=== PATIENT | female | born 1955 | race Caucasian/White ===

== ENCOUNTER → 2023-10-04 14:23 | Outpatient (REF) | payer MEDICARE, SELFPAY | LOC: WDC 14:23 | PROVIDERS: ATTENDING PHYSICIAN Family Medicine | DX: Z12.31 Encounter for screening mammogram for malignant neoplasm of breast (principal); M81.0 Age-related osteoporosis without current pathological fracture; Z78.0 Asymptomatic menopausal state; E04.1 Nontoxic single thyroid nodule | CPT/HCPCS: 76536; 77063; 77067; 77080 ==

== ENCOUNTER → 2023-11-02 07:46 | Outpatient (REF) | payer MEDICARE, SELFPAY | LOC: RAD 07:46 | PROVIDERS: ATTENDING PHYSICIAN Family Medicine | DX: R93.89 Abnormal findings on diagnostic imaging of other specified body structures (principal) | CPT/HCPCS: 93880 ==